=== PATIENT | male | born 1990 | race Caucasian/White ===

== ENCOUNTER 2024-01-23 15:55 | Emergency (ER) | payer SELFPAY ==
[~2024-01-23] VITALS: Ht 170.2 cm; Wt 77.0 kg
[2024-01-23 16:10] VITALS: BP 116/84; PULSE 82; RESP 16; O2SAT 100
== END 2024-01-23 18:51 | disposition left against medical advice (07) ==
LOC: ER 15:55
DX: F10.129 Alcohol abuse with intoxication, unspecified (principal); Y90.9 Presence of alcohol in blood, level not specified
CPT/HCPCS: 99283

== ENCOUNTER 2024-12-22 21:46 | Emergency (ER) | payer MEDICAID ==
[~2024-12-22] VITALS: Ht 167.6 cm; Wt 74.3 kg
[2024-12-22 22:14] VITALS: O2SAT 98
[2024-12-22] MEDS ORDERED: CHLORDIAZEPOXIDE 25MG CAPSULE PO ONE (23:15)
[2024-12-22] MEDS ORDERED: FAMOTIDINE 20MG/2ML VIAL IV ONE (23:15)
[2024-12-23 00:52] LABS: BASOPHILS % 0.3 % (0.0-2.0); EOSINOPHILS % 2.0 % (0.0-5.0); HEMATOCRIT. 41.5 % (42.0-52.0); HEMOGLOBIN. 14.1 g/dL (14.0-18.0); LYMPHOCYTES % 31.5 % (20.0-50.0); MONOCYTES % 10.8 % (2.0-8.0); NEUTROPHILS % 55.4 % (40.0-76.0); RED BLOOD CELL COUNT 4.40 mill/uL (4.7-6.1); RED CELL DISTRIBUTION WIDTH 14.4 % (11.6-14.6)
[2024-12-23 01:19] LABS: CREATININE 0.9 mg/dL (0.6-1.3); TROPONIN I HIGH SENSITIVITY 7 ng/L (3.0-53); UREA NITROGEN BLOOD 10 mg/dL (9-23)
[2024-12-23] MEDS: FAMOTIDINE 20MG/2ML VIAL IV SCH (01:45)
[2024-12-23] MEDS: CHLORDIAZEPOXIDE 25MG CAPSULE PO SCH (01:45)
[2024-12-23] MEDS: SODIUM CHLORIDE 0.9% 1,000 ML IV ONE (01:46)
[2024-12-23 02:54] LABS: TROPONIN I HIGH SENSITIVITY 7 ng/L (3.0-53)
[2024-12-23 02:55] LABS: ASPARTATE AMINOTRANSFERASE 49 IU/L (<34); BILIRUBIN DIRECT 0.1 mg/dL (<=3.0); BILIRUBIN TOTAL 0.4 mg/dL (0.1-1.0); PROTEIN TOTAL 6.7 g/dL (6.0-8.3)
[2024-12-23] MEDS ORDERED: PANT20TA17 MT (03:05)
[2024-12-23 03:45] VITALS: BP 112/56; PULSE 86; RESP 18; TEMP 36.5; O2SAT 97
[2024-12-23 07:41] LABS: MEAN PLATELET VOLUME 8.1 fl (7.4-10.4); PLATELET 304 x1000/uL (130-400)
== END 2024-12-23 03:57 | disposition home or self-care (01) ==
LOC: ER 21:46
DX: F10.20 Alcohol dependence, uncomplicated (principal); R07.9 Chest pain, unspecified; R53.83 Other fatigue; Y90.9 Presence of alcohol in blood, level not specified
CPT/HCPCS: 36415 ×2; 71045; 93005; 99285; 80076; 80048; 83690; 85025; 84484; 96361; 96374; J1308; J7030; Z7610 ×2